=== PATIENT | male | born 1965 | race Caucasian/White ===

== ENCOUNTER 2016-10-26 08:12 | Emergency (ER) | payer BC ==
[2016-10-26 08:19] VITALS: RESP 18
[2016-10-26] MEDS ORDERED: SODIUM CHLORIDE 0.9% 500 ML IV STA (08:37)
--- NOTE | 2016-10-26 08:39 | ED ---
Abdominal Pain HPI - General Chief Complaint: Abdominal Pain Stated Complaint: Abd pain Time Seen by Provider: 10/26/16 08:31 Source: patient, RN notes reviewed Mode of arrival: ambulatory Limitations: no limitations - History of Present Illness Initial Comments: 51-year-old male presents emergency Department with chief complaint of abdominal pain. Patient states started 3 days ago but primarily has been worse over the last 24 hours. Patient states that he gets intermittent sharp tearing sensation type pain in his abdomen. He states is not localize one area symptoms on the left sometimes periumbilical and has been on the right side. Patient states he has no pain at this time but states the pain seems to be progressively getting worse when it comes. Patient states that he has had diverticulosis in the past and has had polyps on colonoscopy. Patient denies any change in bowel habits including diarrhea, constipation, melena or hematochezia. Denies any hematemesis copremesis. Denies any dysuria, hematuria or increased frequency of urination. Patient's had no prior abdominal surgeries. Patient states when the pain is present nothing seems to make it feel better just passes on its own. Patient denies any chest pain or shortness breath. - Related Data Previous Rx's Medication Instructions Recorded Ciprofloxacin HCl [Cipro] 500 mg PO Q12HR #20 tablet 10/26/16 metroNIDAZOLE [Flagyl] 500 mg PO TID #30 tab 10/26/16 Allergies Allergy/AdvReac Type Severity Reaction Status Date / Time erythromycin base Allergy Rash/Hives Verified 10/26/16 08:34 Review of Systems ROS Statement: Those systems with pertinent positive or pertinent negative responses have been documented in the HPI. ROS Other: All systems not noted in ROS Statement are negative. Past Medical History Additional Past Medical History / Comment(s): polyps History of Any Multi-Drug Resistant Organisms: None Reported Past Surgical History: Orthopedic Surgery Additional Past Surgical History / Comment(s): shoulder Past Psychological History: No Psychological Hx Reported Smoking Status: Never smoker Past Alcohol Use History: Occasional Past Drug Use History: None Reported General Exam Limitations: no limitations General appearance: alert, in no apparent distress Head exam: Present: atraumatic, normocephalic, normal inspection Respiratory exam: Present: normal lung sounds bilaterally. Absent: respiratory distress, wheezes, rales, rhonchi, stridor Cardiovascular Exam: Present: regular rate, normal rhythm, normal heart sounds. Absent: systolic murmur, diastolic murmur, rubs, gallop, clicks GI/Abdominal exam: Present: soft, normal bowel sounds. Absent: distended, tenderness, guarding, rebound, rigid Back exam: Absent: CVA tenderness (R), CVA tenderness (L) Neurological exam: Present: alert, oriented X3, CN II-XII intact Course Vital Signs 10/26/16 10/26/16 08:16 10:28 Temperature 98.3 F 97.9 F Pulse Rate 69 63 Respiratory 18 18 Rate Blood Pressure 109/59 107/57 O2 Sat by Pulse 97 97 Oximetry Medical Decision Making - Medical Decision Making 31-year-old male presents emergency Department chief complaint of intermittent abdominal pain. Patient appears to have colitis on CT. There is no evidence of diverticulitis. Patient treated with Cipro Flagyl and follow-up with Dr. Argueta GI specialist. Patient has seen her in the past. Return parameters were discussed. - Lab Data Result diagrams: 10/26/16 09:13 10/26/16 09:13 Lab Results 10/26/16 10/26/16 10/26/16 Range/Units 09:10 09:13 09:13 WBC 4.4 (3.8-10.6) k/uL RBC 5.10 (4.30-5.90) m/uL Hgb 15.5 (13.0-17.5) gm/dL Hct 46.2 (39.0-53.0) % MCV 90.6 (80.0-100.0) fL MCH 30.4 (25.0-35.0) pg MCHC 33.5 (31.0-37.0) g/dL RDW 12.8 (11.5-15.5) % Plt Count 211 (150-450) k/uL Neutrophils % 56 % Lymphocytes % 28 % Monocytes % 6 % Eosinophils % 7 % Basophils % 1 % Neutrophils # 2.5 (1.3-7.7) k/uL Lymphocytes # 1.3 (1.0-4.8) k/uL Monocytes # 0.3 (0-1.0) k/uL Eosinophils # 0.3 (0-0.7) k/uL Basophils # 0.0 (0-0.2) k/uL Sodium 142 (137-145) mmol/L Potassium 4.5 (3.5-5.1) mmol/L Chloride 104 (98-107) mmol/L Carbon Dioxide 28 (22-30) mmol/L Anion Gap 10 mmol/L BUN 19 (9-20) mg/dL Creatinine 0.96 (0.66-1.25) mg/dL Est GFR (MDRD) Af Amer >60 (>60 ml/min/1.73 sqM) Est GFR (MDRD) Non-Af >60 (>60 ml/min/1.73 sqM) Glucose 93 (74-99) mg/dL Calcium 9.6 (8.4-10.2) mg/dL Total Bilirubin 0.8 (0.2-1.3) mg/dL AST 23 (17-59) U/L ALT 37 (21-72) U/L Alkaline Phosphatase 43 (38-126) U/L Total Protein 7.8 (6.3-8.2) g/dL Albumin 4.8 (3.5-5.0) g/dL Amylase 70 (30-110) U/L Lipase 64 (23-300) U/L Urine Color Yellow Urine Appearance Clear (Clear) Urine pH 7.0 (5.0-8.0) Ur Specific [place] 1.019 (1.001-1.035) Urine Protein Negative (Negative) Urine Glucose (UA) Negative (Negative) Urine Ketones Negative (Negative) Urine Blood Negative (Negative) Urine Nitrite Negative (Negative) Urine Bilirubin Negative (Negative) Urine Urobilinogen <2.0 (<2.0) mg/dL Ur Leukocyte Esterase Negative (Negative) Disposition Clinical Impression: Colitis Disposition: HOME SELF-CARE Condition: Stable Instructions: Colitis (ED) Additional Instructions: Please return to the Emergency Department if symptoms worsen or any other concerns. Prescriptions: Ciprofloxacin HCl [Cipro] 500 mg PO Q12HR #20 tablet metroNIDAZOLE [Flagyl] 500 mg PO TID #30 tab Referrals: Quin Agosto MD [Primary Care Provider] - 1-2 days Cheryl Argueta MD [STAFF PHYSICIAN] - 1-2 days Time of Disposition: 10:57
[2016-10-26 09:38] LABS: Basophils % (A) 1 %; CHCM 34.3; Eosinophils # (A) 0.3 k/uL (0-0.7); Eosinophils % (A) 7 %; HCT 46.2 % (39.0-53.0); HDW 2.38; HGB 15.5 gm/dL (13.0-17.5); Luc % (Auto) 2; Lymphocytes # (A) 1.3 k/uL (1.0-4.8); Lymphocytes % (A) 28 %; MCH 30.4 pg (25.0-35.0); MCHC 33.5 g/dL (31.0-37.0); MCV 90.6 fL (80.0-100.0); Mean Platelet Volume 7.3; Monocytes # (A) 0.3 k/uL (0-1.0); Monocytes % (A) 6 %; Neutrophils # (A) 2.5 k/uL (1.3-7.7); Neutrophils % (A) 56 %; RDW 12.8 % (11.5-15.5); WBC 4.4 k/uL (3.8-10.6); WBC (Perox) 4.56
[2016-10-26 09:42] LABS: Appearance,Urine Clear (Clear); Bilirubin,Urine Negative (Negative); Glucose,Urine (UA) Negative (Negative); Ketones,Urine Negative (Negative); Leukocyte Esterase,Urine Negative (Negative); Nitrite,Urine Negative (Negative); Protein,Urine Negative (Negative); Specific Gravity,Urine 1.019 (1.001-1.035); UA Billing (MACRO vs. MICRO) CHEM; Urobilinogen,Urine <2.0 mg/dL (<2.0)
[2016-10-26 09:47] LABS: ALT 37 U/L (21-72); AST 23 U/L (17-59); Alkaline Phosphatase 43 U/L (38-126); Amylase 70 U/L (30-110); Anion Gap 10 mmol/L; Blood Urea Nitrogen 19 mg/dL (9-20); Calcium 9.6 mg/dL (8.4-10.2); Carbon Dioxide 28 mmol/L (22-30); Chloride 104 mmol/L (98-107); Glucose 93 mg/dL (74-99); Non-African American GFR(MDRD) >60 (>60 ml/min/1.73 sqM); Potassium 4.5 mmol/L (3.5-5.1); Sodium 142 mmol/L (137-145); Total Bilirubin 0.8 mg/dL (0.2-1.3); Total Protein 7.8 g/dL (6.3-8.2)
--- NOTE | 2016-10-26 09:55 | XR ---
EXAMINATION TYPE: XR KUB DATE OF EXAM: 10/26/2016 9:31 AM CLINICAL DATA: 51 year-old male abdominal pain, [facility] COMPARISON: None FINDINGS: Lung bases are clear. No evidence for free intraperitoneal air. No dilated small bowel or air-fluid levels. Scattered air and stool seen throughout the colon extendi ng distally into the rectum. Mild overall stool burden. No suspicious calcifications identified. IMPRESSION: No evidence of bowel obstruction or free intraperitoneal air.
[2016-10-26] MEDS ORDERED: RX INFO: IV CONTRAST WAS GIVEN 1 EACH MISC MISCELLANE PRN (09:56)
[2016-10-26 10:30] VITALS: PULSE 63
--- NOTE | 2016-10-26 10:35 | CT ---
EXAMINATION TYPE: CT abdomen pelvis w con DATE OF EXAM: 10/26/2016 10:24 AM COMPARISON: NONE HISTORY: 51-year-old male complains of generalized abdominal pain. TECHNIQUE: Contiguous axial scanning of the abdomen and pelvis following administration of 100 ml Omn ipaque 300 IV contrast. Delayed images through the kidneys and coronal/sagittal reconstructions perf ormed. CT DLP: 608 mGycm Automated exposure control for dose reduction was used. FINDINGS: The heart is normal size without pericardial effusion. Lung bases are clear without pleural effusion. No focal liver lesion or biliary ductal dilatation. Portal venous system is patent. Adrenal glands, kidneys, spleen, and pancreas show no gross abnormal body. No dilated small bowel, free fluid, or free air. Normal appendix is visualized. There is circumferential wall thickening seen extending from the cecum to the splenic flexure. Scattered mild to moderate stool. Mild diverticulosis at the junction of the descending and sigmoid c olon without evidence for acute diverticulitis. No mesenteric or retroperitoneal lymphadenopathy. Bladder is urine distended. Left hemipelvic phleboliths. No abnormal fluid collection in the pelvis o r pelvic lymphadenopathy seen. Bones: No osseous destructive process. IMPRESSION: 1. THERE IS MILD CIRCUMFERENCE OF WALL THICKENING EXTENDING FROM THE CECUM TO THE SPLENIC FLEXURE OF THE COLON. CORRELATE FOR INFECTIOUS OR INFLAMMATORY COLITIS. AFTER TREATMENT, THE PATIENT CAN HAVE A FOLLOW-UP COLONOSCOPY IF ROUTINE SCREENING NOT PERFORMED. 2. MILD DIVERTICULOSIS AT THE DESCENDING SIGMOID COLON JUNCTION WITHOUT ACUTE DIVERTICULITIS.
[2016-10-26 11:17] VITALS: BP 105/68; TEMP 98.3
== END 2016-10-26 11:18 | disposition home or self-care (01) ==
LOC: EC 08:12
DX: K52.9 Noninfective gastroenteritis and colitis, unspecified (principal); Z86.010 Personal history of colon polyps; Z88.1 Allergy status to other antibiotic agents
CPT/HCPCS: 99284; 36415; 80053; 82150; 83690; 85025; 81003; 74000; 74177; Q9967

== ENCOUNTER → 2019-06-28 | Outpatient (CLI) | payer BC ==
--- NOTE | 2019-06-28 11:37 | CT ---
EXAMINATION TYPE: CT pelvis w con DATE OF EXAM: 06/28/2019 COMPARISON: CT abdomen pelvis 10/26/2016 HISTORY: Right groin pain CT DLP: 785 mGycm Automated exposure control for dose reduction was used. CONTRAST: Performed with IV Contrast, patient injected with 100 mL of Isovue 300. TECHNIQUE: Axial images 5 mm thick sections. Reconstructed images in the coronal and sagittal planes. Delayed images were obtained through the pelvis. FINDINGS: Scattered diverticuli are within the proximal sigmoid colon. Urinary bladder appears unremarkable. Prostate is slight prominence. No suspicious inguinal hernias a re identified. The appendix is visualized is normal. Loops of bowel distended with oral contrast are unremarkable. Delayed images remain unremarkable. IMPRESSION: 1. DIVERTICULOSIS WITHOUT ACUTE DIVERTICULITIS. 2. THERE MAY BE SOME MILD PROSTATE PROMINENCE.
== END | disposition home or self-care (01) ==
LOC: RADCTMAIN 07:29
PROVIDERS: ATTEND Surgery
DX: R10.30 Lower abdominal pain, unspecified (principal); Z88.1 Allergy status to other antibiotic agents
CPT/HCPCS: 72193; Q9967 ×2

== ENCOUNTER → 2019-07-17 | Outpatient (CLI) | payer BC ==
--- NOTE | 2019-07-18 10:22 | MR ---
EXAMINATION TYPE: MR pelvis wo/w con DATE OF EXAM: 07/17/2019 COMPARISON: CT dated 06/28/2019 at the pelvis HISTORY: Groin pain CONTRAST: Standard multiplanar, multisequence MRI departmental protocol utilizing 8 mL intravenous Gadavist jasmina olinium contrast. FINDINGS: There is cephalad joint space narrowing of the right femoral acetabular joint and bilateral mild acet abular roof sclerosis. The femoral heads maintain a normal rounded contour. Bone marrow signal is wit hin normal limits other than mild bilateral sacroiliac joint sclerosis. No superficial inguinal adenopathy or pelvic adenopathy is seen. No evidence of inguinal hernia altho ugh the proximal inguinal rings are fat filled. Very trace bilateral hydroceles are seen. There is redemonstration of sigmoid diverticulosis without evidence of acute diverticulitis. The pros hampton gland is slightly heterogenous suboptimally evaluated without small [id number] images. The bilateral hip girdle musculature is unremarkable in signal and muscle volume. Postcontrast images demonstrate no abnormal enhancement of the pelvis. There is diffuse enhancement o f the somatic cord and surrounding vascular structures. There is asymmetric enlargement of the right spermatic cord and comparison to the left. IMPRESSION: 1. Asymmetric enlargement of the right spermatic cord in comparison to the left. Varicocele is of [facility] diagnostic consideration. No proximal obstructing mass or adenopathy is seen within the pelvis. 2. Mild bilateral femoral acetabular arthropathy, joint space narrowing greater on the right than lef t. 3. Fat filled cranial aspect of the bilateral inguinal rings without discrete hernia.
== END | disposition home or self-care (01) ==
LOC: RADMRIMAIN 10:36
PROVIDERS: ATTEND Surgery
DX: R10.30 Lower abdominal pain, unspecified (principal); N50.89 Other specified disorders of the male genital organs
CPT/HCPCS: 72197; A9585

== ENCOUNTER 2023-02-04 16:35 | Emergency (ER) | payer BC ==
[2023-02-04 16:40] VITALS: RESP 18
--- NOTE | 2023-02-04 16:42 | ED ---
Fall HPI - General Chief Complaint: Fall Stated Complaint: Fall, Back Pain /3-4ft fall Time Seen by Provider: 02/04/23 16:41 Source: patient Mode of arrival: ambulatory - History of Present Illness Initial Comments: Serum is a pleasant 57-year-old male presents the emergency department today via private vehicle for evaluation of pain in the right buttock. Patient reports she was on the third rung of a ladder when he fell backwards landing on his buttocks. Did not hit his head. Complains of pain in the right buttocks, and tailbone region. No numbness or tingling no difficulty ambulating. Pain is primarily with sitting. Patient did note a hematoma in the area and thought he should be evaluated. - Related Data Previous Rx's Medication Instructions Recorded Ciprofloxacin HCl [Cipro] 500 mg PO Q12HR #20 tablet 10/26/16 metroNIDAZOLE [Flagyl] 500 mg PO TID #30 tab 10/26/16 Allergies Allergy/AdvReac Type Severity Reaction Status Date / Time erythromycin base Allergy Rash/Hives Verified 10/26/16 08:34 Review of Systems ROS Statement: Those systems with pertinent positive or pertinent negative responses have been documented in the HPI. ROS Other: All systems not noted in ROS Statement are negative. Past Medical History Past Medical History: Hyperlipidemia Additional Past Medical History / Comment(s): polyps History of Any Multi-Drug Resistant Organisms: None Reported Past Surgical History: Orthopedic Surgery Additional Past Surgical History / Comment(s): shoulder Past Psychological History: No Psychological Hx Reported Smoking Status: Never smoker Past Alcohol Use History: Occasional Past Drug Use History: None Reported General Exam - General Exam Comments Initial Comments: Physical Exam GENERAL: Patient is well-developed and well-nourished. Patient is nontoxic and well-hydrated and is in no distress. HENT: Normocephalic, Atraumatic. EYES: PERRL, EOMI PULMONARY: Unlabored respirations. CARDIOVASCULAR: RRR Warm and well perfused extremities ABDOMEN: Non-distended SKIN: No rashes or bruising : Deferred NEUROLOGIC: Alert and oriented Normal speech Normal gait MUSCULOSKELETAL: Hematoma in the right glute, no open wounds No bony tenderness with palpation of the pelvic ring PSYCHIATRIC: No SI/HI Limitations: no limitations Course Vital Signs 02/04/23 02/04/23 16:37 17:48 Temperature 98.2 F 98.1 F Pulse Rate 91 87 Respiratory 18 18 Rate Blood Pressure 150/94 141/88 O2 Sat by Pulse 98 99 Oximetry Medical Decision Making - Medical Decision Making Was pt. sent in by a medical professional or institution (NUPUR Covarrubias, FIELD SERVICE TECHNICIAN, urgent care, hospital, or senior care...) When possible be specific @ -No Did you speak to anyone other than the patient for history (EMS, parent, family, police, friend...)? What history was obtained from this source @ -No Did you review nursing and triage notes (agree or disagree)? Why? @ -I reviewed and agree with nursing and triage notes Were old charts reviewed (outside hosp., previous admission, EMS record, old EKG, old radiological studies, urgent care reports/EKG's, senior care records)? Report findings @ -No old charts were reviewed Differential Diagnosis (chest pain, altered mental status, abdominal pain women, abdominal pain men, vaginal bleeding, weakness, fever, dyspnea, syncope, headache, dizziness, GI bleed, back pain, seizure, CVA, palpatations, mental health, musculoskeletal)? @ -not applicable EKG interpreted by me (3pts min.). @ -As above X-rays interpreted by me (1pt min.). @ I see no obvious fractures or dislocations and x-rays of the pelvis, sacrum and lumbar spine CT interpreted by me (1pt min.). @ -None done U/S interpreted by me (1pt. min.). @ -None done What testing was considered but not performed or refused? (CT, X-rays, U/S, labs)? Why? @ -None What meds were considered but not given or refused? Why? @ -None Did you discuss the management of the patient with other professionals (professionals i.e. NUP[employer] Covarrubias, FIELD SERVICE TECHNICIAN, lab, RT, psych nurse, group social worker, top coater, teacher, forest fire management officer, nurse case manager)? Give summary @ -No Was smoking cessation discussed for >3mins.? @ -No Was critical care preformed (if so, how long)? @ -No Were there social determinants of health that impacted care today? How? (Homelessness, low income, unemployed, alcoholism, drug addiction, transportation, low edu. Level, literacy, decrease access to med. care, penitentiary, rehab)? @ -No Was there de-escalation of care discussed even if they declined (Discuss DNR or withdrawal of care, Hospice)? DNR status @ -No What co-morbidities impacted this encounter? (DM, HTN, Smoking, COPD, CAD, Cancer, CVA, ARF, Chemo, Hep., AIDS, mental health diagnosis, sleep apnea, morbid obesity)? @ -None Was patient admitted / discharged? Hospital course, mention meds given and route, prescriptions, significant lab abnormalities, going to OR and other pertinent info. @ The patient was seen and evaluated history is obtained from the patient x- rays were obtained and reveal no obvious fractures or dislocations. Advised patient that he does have a large hematoma recommended supportive care with ice, Tylenol, Motrin and using a hemorrhoid pillow which she can buy at a drugstore. Did discuss the possibility of missed hairline fractures but that failure to identify these does not policy change clerk. All questions pertaining care were answered return parameters were discussed patient was discharged home in stable condition with plan for supportive care. Undiagnosed new problem with uncertain prognosis? @ -No Drug Therapy requiring intensive monitoring for toxicity (Heparin, Nitro, Insulin, Cardizem)? @ -No Were any procedures done? @ -No Diagnosis/symptom? @ Hematoma in the right buttock Acute, or Chronic, or Acute on Chronic? @ -Acute Uncomplicated (without systemic symptoms) or Complicated (systemic symptoms)? @ -Uncomplicated Side effects of treatment? @ -No Exacerbation, Progression, or Severe Exacerbation? @ -No Poses a threat to life or bodily function? How? (Chest pain, [place], [place], pneumonia, PE, COPD, DKA, ARF, appy, cholecystitis, CVA, Diverticulitis, Homicidal, Suicidal, threat to staff... and all critical care pts) @ -No Disposition Clinical Impression: Fall, Traumatic hematoma of buttock Disposition: HOME SELF-CARE Instructions (If sedation given, give patient instructions): Hematoma (ED) Is patient prescribed a controlled substance at d/c from ED?: No Referrals: None,Stated [REFERRING] - 1-2 days
--- NOTE | 2023-02-04 17:05 | XR ---
EXAMINATION TYPE: XR pelvis AP view, XR sacrum coccyx DATE OF EXAM: 02/04/2023 5:00 PM INDICATION: Patient age:Male; 57 years old; Reason for study: fall from ladder to butt; [facility]. COMPARISON: CT pelvis 06/28/2019 TECHNIQUE: The pelvis was examined in a single projection. The sacrum/coccyx was evaluated in 3 proje ctions. FINDINGS: There is no evidence of fracture or dislocation. There is no soft tissue abnormality. Multi level degenerative changes of the lower spine. Few pelvic phleboliths. IMPRESSION: No acute osseous pathology.
--- NOTE | 2023-02-04 17:07 | XR ---
EXAMINATION TYPE: XR lumbar spine 2 or 3V DATE OF EXAM: 02/04/2023 CLINICAL HISTORY: Fall, pain TECHNIQUE: Three views of the lumbar spine are submitted. COMPARISON: Pelvic and sacral of the same day, CT pelvis 06/28/2019 FINDINGS: There are 5 lumbar type vertebral bodies identified. The lumbar spine shows satisfactory alignment w ithout evidence of acute fracture or dislocation. Vertebral body heights are within normal limits. Mild multilevel disc space narrowing with anterior osteophytosis. Facet arthropathy L5-S1. The overl cyndi soft tissue appears unremarkable. IMPRESSION: 1. No acute fracture or dislocation is seen in the lumbar spine. 2. Mild degenerative disc disease and facet arthropathy.
[2023-02-04 17:54] VITALS: BP 141/88; PULSE 87; TEMP 98.1
== END 2023-02-04 17:50 | disposition home or self-care (01) ==
LOC: EC 16:35
DX: S30.0XXA Contusion of lower back and pelvis, initial encounter (principal); Z88.1 Allergy status to other antibiotic agents; W11.XXXA Fall on and from ladder, initial encounter
CPT/HCPCS: 72100; 72170; 72220; 99284